=== PATIENT | male | born 1935 | race African-American/Black ===

== ENCOUNTER 2018-07-12 10:25 | Inpatient (IN) | payer MEDICARE, MEDICAID ==
[~2018-07-12] VITALS: Ht 182.9 cm; Wt 112.0 kg
[~2018-07-12 10:25] MED LIST: AMLO5TAB4 PO; CARB200T PO; CLON0.1T PO; FURO40TA5 PO; LABE100T5 PO; LISI-604 PO; LOSA100T14 PO; PARO-66 PO; TERA5CAP4 PO
[2018-07-12] MEDS ORDERED: LORAZEPAM 2MG/ML CPJ ONE (10:31)
[2018-07-12 11:44] LABS: BASOPHILS % 0.6 % (0.0-2.0); EOSINOPHILS % 2.4 % (0.0-5.0); HEMATOCRIT. 40.2 % (42.0-52.0); HEMOGLOBIN. 13.3 g/dL (14.0-18.0); LYMPHOCYTES % 9.5 % (20.0-50.0); MEAN CORPUSCULAR HEMOGLOBIN 30.5 pg (28.0-32.0); MEAN CORPUSCULAR VOLUME 92.5 fL (80.0-94.0); MONOCYTES % 10.4 % (2.0-8.0); NEUTROPHILS % 77.1 % (40.0-76.0); PLATELET 302 x1000/uL (130-400); RED BLOOD CELL COUNT 4.35 mill/uL (4.7-6.1); RED CELL DISTRIBUTION WIDTH 13.7 % (11.6-14.6)
[2018-07-12 11:49] LABS: CHLORIDE 102 mEq/L (98-107)
[2018-07-12 11:56] LABS: ETHANOL BLOOD < 10 mg/dL
[2018-07-12 12:02] LABS: CARBAMAZEPINE 6.6 ug/mL (4-12)
[2018-07-12] MEDS ORDERED: ONDANSETRON HCL 4MG/2ML INJ IV PRN (16:30)
[2018-07-12] MEDS ORDERED: LORAZEPAM 2MG/ML CPJ IV PRN (16:30)
[2018-07-12] MEDS ORDERED: ACETAMINOPHEN 650MG SUPP PR PRN (16:30)
[2018-07-12 18:28] VITALS: BP 154/91
[2018-07-12] MEDS ORDERED: ACETAMINOPHEN 325MG TABLET PO PRN (18:45)
[2018-07-12] MEDS ORDERED: CLONIDINE 0.1MG TABLET PO PRN (19:30)
[2018-07-12 19:58] LABS: CLARITY URINE CLEAR (CLEAR); COLOR URINE YELLOW (YELLOW); KETONES URINE TRACE (NEGATIVE); LEUKOCYTE ESTERASE URINE NEGATIVE (NEGATIVE); NITRITE URINE NEGATIVE (NEGATIVE); OCCULT BLOOD URINE TRACE (NEGATIVE); PH URINE 6.5 (4.5-8.0); PROTEIN URINE NEGATIVE (NEGATIVE); SPECIFIC GRAVITY URINE 1.017 (1.005-1.030)
[2018-07-12 20:00] VITALS: BP 157/78
[2018-07-12 20:07] LABS: *AMPHETAMINES SCREEN URINE NEGATIVE (NEGATIVE); *BARBITURATES SCREEN URINE NEGATIVE (NEGATIVE); *BENZODIAZEPINES SCREEN URINE NEGATIVE (NEGATIVE); *COCAINE SCREEN URINE NEGATIVE (NEGATIVE); METHADONE URINE SCREEN NEGATIVE (NEGATIVE)
[2018-07-12 20:08] LABS: CANNABINOID URINE SCREEN NEGATIVE (NEGATIVE); OPIATES URINE SCREEN NEGATIVE (NEGATIVE); PHENCYCLIDINE URINE SCREEN NEGATIVE (NEGATIVE)
[2018-07-12] MEDS: PANTOPRAZOLE SODIUM 40 MG/VIAL IV SCH (21:32)
[2018-07-12] MEDS: LEVETIRACETAM 500MG/5ML CUP PO SCH (21:32)
[2018-07-12] MEDS: CARVEDILOL 3.125 MG TABLET PO SCH (21:33)
[2018-07-12 22:00] VITALS: BP 137/78
[2018-07-12 23:54] LABS: CREATINE KINASE 210 IU/L (39-308)
[2018-07-13] VITALS (12 sets, daily range): BP systolic 114–172; BP diastolic 66–98
[2018-07-13 07:11] LABS: BASOPHILS % 0.6 % (0.0-2.0); EOSINOPHILS % 2.3 % (0.0-5.0); HEMATOCRIT. 36.4 % (42.0-52.0); HEMOGLOBIN. 12.3 g/dL (14.0-18.0); LYMPHOCYTES % 15.8 % (20.0-50.0); MEAN CORPUSCULAR HEMOGLOBIN 30.8 pg (28.0-32.0); MEAN CORPUSCULAR VOLUME 91.1 fL (80.0-94.0); MEAN PLATELET VOLUME 7.1 fl (7.4-10.4); MONOCYTES % 14.7 % (2.0-8.0); NEUTROPHILS % 66.6 % (40.0-76.0); PLATELET 298 x1000/uL (130-400); RED CELL DISTRIBUTION WIDTH 14.1 % (11.6-14.6)
[2018-07-13 07:34] LABS: CHLORIDE 101 mEq/L (98-107)
[2018-07-13 08:04] LABS: CREATINE KINASE 169 IU/L (39-308)
[2018-07-13] MEDS: CARVEDILOL 3.125 MG TABLET PO SCH (09:20)
[2018-07-13] MEDS: PANTOPRAZOLE SODIUM 40 MG/VIAL IV SCH (09:20)
[2018-07-13] MEDS: LEVETIRACETAM 500MG/5ML CUP PO SCH ×2 (09:20→21:47)
[2018-07-13 11:46] LABS: T4 FREE 0.74 ng/dL (0.76-1.46)
[2018-07-13] MEDS: FOLIC ACID 1MG TABLET PO SCH (12:25)
[2018-07-13] MEDS: THIAMINE HCL 100MG TABLET PO SCH (12:25)
[2018-07-13] MEDS: MULTIVITAMINS,THER W-MINERALS TABLET PO SCH (12:25)
[2018-07-13] MEDS: AMLODIPINE 5MG TABLET PO SCH ×2 (14:16→21:48)
[2018-07-13 16:43] LABS: CREATINE KINASE 175 IU/L (39-308)
[2018-07-13] MEDS: CARBAMAZEPINE 100MG TABLET CHEW PO SCH (21:47)
[2018-07-13] MEDS: LISINOPRIL 10MG TABLET PO SCH (21:48)
[2018-07-14] VITALS (16 sets, daily range): BP systolic 121–169; BP diastolic 71–94
[2018-07-14 06:12] LABS: BASOPHILS % 0.5 % (0.0-2.0); EOSINOPHILS % 4.1 % (0.0-5.0); HEMATOCRIT. 36.9 % (42.0-52.0); HEMOGLOBIN. 12.3 g/dL (14.0-18.0); LYMPHOCYTES % 14.2 % (20.0-50.0); MEAN CORPUSCULAR HEMOGLOBIN 30.7 pg (28.0-32.0); MEAN CORPUSCULAR VOLUME 92.2 fL (80.0-94.0); MEAN PLATELET VOLUME 7.2 fl (7.4-10.4); NEUTROPHILS % 69.2 % (40.0-76.0); PLATELET 288 x1000/uL (130-400); RED CELL DISTRIBUTION WIDTH 13.8 % (11.6-14.6)
[2018-07-14 06:24] LABS: CHLORIDE 101 mEq/L (98-107)
[2018-07-14 06:40] LABS: LDL CHOLESTEROL 95 mg/dL (5-100)
[2018-07-14 06:42] LABS: HDL CHOLESTEROL 50 mg/dL (40-59)
[2018-07-14] MEDS: MULTIVITAMINS,THER W-MINERALS TABLET PO SCH (08:19)
[2018-07-14] MEDS: PANTOPRAZOLE SODIUM 40 MG/VIAL IV SCH (08:19)
[2018-07-14] MEDS: CARVEDILOL 3.125 MG TABLET PO SCH (08:19)
[2018-07-14] MEDS: LEVETIRACETAM 500MG/5ML CUP PO SCH ×2 (08:19→21:03)
[2018-07-14] MEDS: CARBAMAZEPINE 100MG TABLET CHEW PO SCH ×2 (08:20→21:03)
[2018-07-14] MEDS: AMLODIPINE 5MG TABLET PO SCH ×2 (08:20→21:04)
[2018-07-14] MEDS: FOLIC ACID 1MG TABLET PO SCH (08:20)
[2018-07-14] MEDS: THIAMINE HCL 100MG TABLET PO SCH (08:20)
[2018-07-14] MEDS: LISINOPRIL 10MG TABLET PO SCH ×2 (08:20→21:04)
[2018-07-15] VITALS (10 sets, daily range): BP systolic 119–173; BP diastolic 54–105
[2018-07-15] MEDS: AMLODIPINE 5MG TABLET PO SCH (09:12)
[2018-07-15] MEDS: THIAMINE HCL 100MG TABLET PO SCH (09:12)
[2018-07-15] MEDS: CARVEDILOL 3.125 MG TABLET PO SCH (09:12)
[2018-07-15] MEDS: CARBAMAZEPINE 100MG TABLET CHEW PO SCH (09:12)
[2018-07-15] MEDS: MULTIVITAMINS,THER W-MINERALS TABLET PO SCH (09:12)
[2018-07-15] MEDS: LISINOPRIL 10MG TABLET PO SCH (09:12)
[2018-07-15] MEDS: FOLIC ACID 1MG TABLET PO SCH (09:12)
[2018-07-15] MEDS: LEVETIRACETAM 500MG/5ML CUP PO SCH (09:13)
[2018-07-15] MEDS: PANTOPRAZOLE SODIUM 40 MG/VIAL IV SCH (09:13)
[2018-07-15] MEDS ORDERED: LISINOPRIL 20MG TABLET PO SCH (21:00)
[2018-07-15] MEDS ORDERED: CARVEDILOL 3.125 MG TABLET PO SCH (21:00)
== END 2018-07-15 16:00 | disposition home or self-care (01) | DRG 101 ==
LOC: ER 10:25 → 5EST 13:52 → ENRESERV 15:36
PROVIDERS: ADMIT Family Medicine Adult Medicine; ATTEND Family Medicine Adult Medicine
PROC: 4A00X4Z Measurement of Central Nervous Electrical Activity, External Approach (ICD-10-PCS; principal; 2018-07-14)
DX: G40.901 Epilepsy, unspecified, not intractable, with status epilepticus (principal); E44.1 Mild protein-calorie malnutrition; I69.354 Hemiplegia and hemiparesis following cerebral infarction affecting left non-dominant side; I10 Essential (primary) hypertension; E66.9 Obesity, unspecified; E78.00 Pure hypercholesterolemia, unspecified; N40.0 Benign prostatic hyperplasia without lower urinary tract symptoms; Z68.33 Body mass index [BMI] 33.0-33.9, adult; Z79.899 Other long term (current) drug therapy
CPT/HCPCS: 36415; 70551; 71045; 80048; 80061; 80156; 80305; 80320; 82550; 82962; 83036; 83735; 84439; 84443; 84481; 84484; 92610; 93005; 93306; 93970; 97163; 97166; 99285; A6261; C9113; J2060; G0480